=== PATIENT | female | born 1965 | race Caucasian/White ===

== ENCOUNTER 2016-11-03 17:14 | Emergency (ER) | payer OTHER ==
[~2016-11-03] VITALS: Ht 157.5 cm; Wt 84.1 kg
[~2016-11-03 17:14] MED LIST: BCP TD; HIGH BP MED; METRONIDAZOLE500 MG PO; MULTIPLE VITAMI1 CAP PO; NORCO 325 MG-51 TAB PO; PHENERGAN 25 TA25 MG PO; PRILOSEC 10MG10 MG PO; REGLAN 10M10 MG/2 ML; VICODIN 5/5001 UDTAB PO; ZOFRAN ODT4 MG PO
[2016-11-03 17:19] VITALS: BP 136/77; TEMP 98.1
[2016-11-03] MEDS ORDERED: ZESTRIL 10MG10 MG PO (17:45)
[2016-11-03] MEDS ORDERED: HCTZ 25MG TAB25 MG PO (17:46)
[2016-11-03 18:16] LABS: BASO # 0.1 (0.0-0.2); BASO % 0.2 % (0.0-2.0); GRAN % 85.3 % (42.2-75.2); HEMATOCRIT 42.1 % (37.0-47.0); HEMOGLOBIN 13.5 g/dl (12.5-16.0); LYMPH % 9.5 % (20.0-51.0); MEAN CELL VOLUME 90 fl (80.0-100.0); MEAN CORPUSCULAR HEMOGLOBIN 29 pg (27.0-31.0); MEAN CORPUSCULAR HGB CONC 32 g/dl (33.0-37.0); MEAN PLATELET VOLUME 9.2 fl (7.4-10.4); MONO # 0.9 (0.1-0.6); MONO % 4.3 % (1.7-9.3); PLATELET COUNT 525 K/mm3 (130-400); RED BLOOD COUNT 4.68 M/mm3 (4.10-5.30); REDCELL DISTRIBUTION WIDTH-CV 13.7 % (11.5-14.5)
[2016-11-03 18:26] LABS: WHITE BLOOD COUNT 21.1 K/mm3 (4.8-10.8)
[2016-11-03 18:31] LABS: PH 5 (5-8); SQUAMOUS EPITHELIAL 0-2 /hpf; URINE APPEARANCE Hazy; URINE BACTERIA Rare /hpf; URINE BILIRUBIN Negative (NEGATIVE); URINE BLOOD 3+ (NEGATIVE); URINE COLOR Yellow; URINE GLUCOSE Negative (NEGATIVE); URINE KETONE 1+ (NEGATIVE); URINE UROBILINOGEN Negative (NEGATIVE); URINE WBC 0-2 /hpf
[2016-11-03 18:42] LABS: ADJUSTED CALCIUM 9.1 mg/dL (8.4-10.2); ALBUMIN 4.2 gm/dL (3.5-5.0); BILIRUBIN,TOTAL 0.8 mg/dL (0.0-1.0); CALCIUM 9.3 mg/dL (8.4-10.2); CREATININE, serum 0.76 mg/dL (0.52-1.25); POTASSIUM 3.4 mmol/L (3.4-5.0); TOTAL PROTEIN 7.8 gm/dL (6.4-8.2)
[2016-11-03] MEDS ORDERED: ZOFRAN ODT4 MG PO (19:58)
[2016-11-03 20:49] VITALS: PULSE 108
== END 2016-11-03 20:58 | disposition home or self-care (01) ==
LOC: COL.ER 17:14
PROVIDERS: Family Medicine
DX: E86.9 Volume depletion, unspecified (principal); R11.2 Nausea with vomiting, unspecified; I10 Essential (primary) hypertension
CPT/HCPCS: J2405; J2550; J2765; J7030

== ENCOUNTER 2016-11-14 11:59 | Observation (INO) | payer OTHER ==
[~2016-11-14] VITALS: Wt 84.8 kg
[~2016-11-14 11:59] MED LIST changes: +HCTZ 25MG TAB25 MG PO; +ZESTRIL 10MG10 MG PO
[2016-11-14 12:55] LABS: HEMATOCRIT 42.4 % (37.0-47.0); HEMOGLOBIN 13.8 g/dl (12.5-16.0); MEAN CELL VOLUME 89 fl (80.0-100.0); MEAN CORPUSCULAR HEMOGLOBIN 29 pg (27.0-31.0); MEAN CORPUSCULAR HGB CONC 33 g/dl (33.0-37.0); MEAN PLATELET VOLUME 9.4 fl (7.4-10.4); PLATELET COUNT 505 K/mm3 (130-400); RED BLOOD COUNT 4.79 M/mm3 (4.10-5.30); REDCELL DISTRIBUTION WIDTH-CV 13.7 % (11.5-14.5)
[2016-11-14 13:00] LABS: ADD PATHOLOGY DIFF REVIEW NO
[2016-11-14 13:14] LABS: PH 5 (5-8); URINE APPEARANCE Cloudy; URINE BACTERIA Rare /hpf; URINE BILIRUBIN Negative (NEGATIVE); URINE BLOOD 3+ (NEGATIVE); URINE COLOR Yellow; URINE GLUCOSE Negative (NEGATIVE); URINE KETONE 1+ (NEGATIVE); URINE UROBILINOGEN Negative (NEGATIVE)
[2016-11-14 13:20] LABS: BAND 3 % (0-10); NEUTROPHILS 84 % (42.0-75.2); TOTAL CELLS COUNTED 100
[2016-11-14 13:21] LABS: PLATELET ESTIMATE INCREASED (NORMAL)
[2016-11-14 13:55] LABS: ADJUSTED CALCIUM 9.1 mg/dL (8.4-10.2); ALANINE AMINOTRANSFERASE 22 U/L (9-52); ALKALINE PHOSPHATASE 93 U/L (50-136); ANION GAP 15 mmol/L (7-16); BILIRUBIN,TOTAL 0.9 mg/dL (0.0-1.0); BLOOD UREA NITROGEN 20 mg/dL (7-17); C-REACTIVE PROTEIN 3.8 mg/dL (0.0-0.9); CALCIUM 9.1 mg/dL (8.4-10.2); CARBON DIOXIDE 25 mmol/L (22-30); CHLORIDE 99 mmol/L (98-107); CREATININE, serum 0.84 mg/dL (0.52-1.25); GLUCOSE 133 mg/dL (74-106); LIPASE 149 U/L (23-300); POTASSIUM 3.8 mmol/L (3.4-5.0); SODIUM 139 mmol/L (137-145); TOTAL PROTEIN 7.4 gm/dL (6.4-8.2)
[2016-11-14 14:05] LABS: TROPONIN-I < 0.012 ng/mL (0.000-0.034)
[2016-11-14 19:49] VITALS: BP 138/74; PULSE 109; TEMP 98.8
[2016-11-14] MEDS ORDERED: PRILOTC PO (21:15)
[2016-11-14] MEDS ORDERED: NAPROSYN 2250 MG/TAB PO (21:18)
[2016-11-14] MEDS ORDERED: OMEGA-31 SGL PO (21:19)
[2016-11-14 23:04] VITALS: BP 136/64; PULSE 108; TEMP 98.8
[2016-11-15 03:04] VITALS: BP 139/73; PULSE 95; TEMP 98.5
[2016-11-15 07:35] VITALS: BP 139/64; PULSE 97; TEMP 98.3
[2016-11-15 11:47] VITALS: BP 126/76; PULSE 101; TEMP 97.8
[2016-11-15 15:33] VITALS: BP 159/78; PULSE 102; TEMP 98.1
[2016-11-15 21:00] VITALS: BP 157/78; PULSE 105; TEMP 98.4
[2016-11-16] VITALS (9 sets, daily range): BP systolic 132–162; BP diastolic 67–84; PULSE 79–106; TEMP 97.9–98.5
[2016-11-16 07:08] LABS: BASO # 0.1 (0.0-0.2); BASO % 0.5 % (0.0-2.0); EOS % 0.3 % (0-4.0); GRAN % 63.7 % (42.2-75.2); LYMPH # 2.7 (1.2-3.4); LYMPH % 28.6 % (20.0-51.0); MEAN CELL VOLUME 91 fl (80.0-100.0); MEAN CORPUSCULAR HGB CONC 31 g/dl (33.0-37.0); MEAN PLATELET VOLUME 9.5 fl (7.4-10.4); MONO # 0.6 (0.1-0.6); MONO % 6.3 % (1.7-9.3); RED BLOOD COUNT 3.42 M/mm3 (4.10-5.30); REDCELL DISTRIBUTION WIDTH-CV 14.1 % (11.5-14.5); WHITE BLOOD COUNT 9.4 K/mm3 (4.8-10.8)
[2016-11-16 07:19] LABS: HEMOGLOBIN 9.7 g/dl (12.5-16.0); MEAN CORPUSCULAR HEMOGLOBIN 28 pg (27.0-31.0); PLATELET COUNT 346 K/mm3 (130-400)
[2016-11-16 07:25] LABS: ALBUMIN 3.2 gm/dL (3.5-5.0); BILIRUBIN,TOTAL 0.7 mg/dL (0.0-1.0); CALCIUM 7.4 mg/dL (8.4-10.2); CREATININE, serum 0.66 mg/dL (0.52-1.25); MAGNESIUM 1.7 mg/dL (1.6-2.3); POTASSIUM 3.6 mmol/L (3.4-5.0)
[2016-11-16] MEDS ORDERED: REGLAN 10MG10 MG/TAB PO (14:14)
== END 2016-11-16 15:16 | disposition home or self-care (01) ==
LOC: COL.ER 11:59 → MEDICAL 17:17
PROVIDERS: Family Medicine; Internal Medicine; Nurse Practitioner
DX: G43.A0 Cyclical vomiting, in migraine, not intractable (principal); K52.9 Noninfective gastroenteritis and colitis, unspecified; K29.70 Gastritis, unspecified, without bleeding; K31.84 Gastroparesis; R00.0 Tachycardia, unspecified; D72.829 Elevated white blood cell count, unspecified; R18.8 Other ascites
CPT/HCPCS: 99232-AI; 99239; C9113; G0378; J1650; J2250; J2550; J2765; J3010; J7030; Q9967

== ENCOUNTER 2016-11-18 06:18 | Emergency (ER) | payer OTHER ==
[~2016-11-18] VITALS: Ht 157.5 cm; Wt 84.1 kg
[~2016-11-18 06:18] MED LIST changes: +NAPROSYN 2250 MG/TAB PO; +OMEGA-31 SGL PO; +PRILOTC PO; +REGLAN 10MG10 MG/TAB PO
[2016-11-18 06:21] VITALS: TEMP 97.7
[2016-11-18 07:01] LABS: HEMATOCRIT 46.2 % (37.0-47.0); MEAN CELL VOLUME 87 fl (80.0-100.0); MEAN CORPUSCULAR HGB CONC 33 g/dl (33.0-37.0); MEAN PLATELET VOLUME 9.4 fl (7.4-10.4); RED BLOOD COUNT 5.29 M/mm3 (4.10-5.30); REDCELL DISTRIBUTION WIDTH-CV 13.7 % (11.5-14.5)
[2016-11-18 07:03] LABS: ADD PATHOLOGY DIFF REVIEW NO; HEMOGLOBIN 15.3 g/dl (12.5-16.0); MEAN CORPUSCULAR HEMOGLOBIN 29 pg (27.0-31.0); PLATELET COUNT 553 K/mm3 (130-400); WHITE BLOOD COUNT 24.6 K/mm3 (4.8-10.8)
[2016-11-18 07:45] LABS: BAND 16 % (0-10); METAMYELOCYTE 1 % (0-0); NEUTROPHILS 73 % (42.0-75.2); PLATELET ESTIMATE INCREASED (NORMAL); TOTAL CELLS COUNTED 100
[2016-11-18 07:48] LABS: TOXIC GRANULATION PRESENT
[2016-11-18 07:54] LABS: ADJUSTED CALCIUM 8.8 mg/dL (8.4-10.2); ALBUMIN 4.3 gm/dL (3.5-5.0); BILIRUBIN,TOTAL 1.2 mg/dL (0.0-1.0); C-REACTIVE PROTEIN 2.7 mg/dL (0.0-0.9); CREATININE, serum 0.92 mg/dL (0.52-1.25); POTASSIUM 3.5 mmol/L (3.4-5.0); TOTAL PROTEIN 7.9 gm/dL (6.4-8.2)
[2016-11-18] MEDS ORDERED: PHENERGAN25 MG RC (08:18)
[2016-11-18 08:45] LABS: PH 5 (5-8); SQUAMOUS EPITHELIAL 0-2 /hpf; URINE APPEARANCE Hazy; URINE BACTERIA None Seen /hpf; URINE BILIRUBIN Negative (NEGATIVE); URINE BLOOD 3+ (NEGATIVE); URINE COLOR Yellow; URINE GLUCOSE Negative (NEGATIVE); URINE KETONE 1+ (NEGATIVE); URINE UROBILINOGEN Negative (NEGATIVE)
[2016-11-18 10:59] VITALS: BP 155/85; PULSE 123
== END 2016-11-18 10:59 | disposition home or self-care (01) ==
LOC: COL.ER 06:18
PROVIDERS: Emergency Medicine
DX: R11.10 Vomiting, unspecified (principal); R19.7 Diarrhea, unspecified; R10.816 Epigastric abdominal tenderness; I10 Essential (primary) hypertension; G43.A0 Cyclical vomiting, in migraine, not intractable
CPT/HCPCS: J1200; J1630; J2060; J2405; J2550; J7030

== ENCOUNTER 2016-11-25 22:45 | Observation (INO) | payer OTHER ==
[~2016-11-25] VITALS: Ht 157.5 cm; Wt 83.5 kg
[~2016-11-25 22:45] MED LIST changes: +PHENERGAN25 MG RC
[2016-11-26 00:01] LABS: HEMOGLOBIN 17.5 g/dl (12.5-16.0); MEAN CELL VOLUME 87 fl (80.0-100.0); MEAN CORPUSCULAR HEMOGLOBIN 29 pg (27.0-31.0); MEAN CORPUSCULAR HGB CONC 33 g/dl (33.0-37.0); PLATELET COUNT 594 K/mm3 (130-400); RED BLOOD COUNT 6.08 M/mm3 (4.10-5.30); REDCELL DISTRIBUTION WIDTH-CV 13.9 % (11.5-14.5)
[2016-11-26 00:03] LABS: ADD PATHOLOGY DIFF REVIEW NO
[2016-11-26 00:10] LABS: ADJUSTED CALCIUM 9.1 mg/dL (8.4-10.2); ALBUMIN 4.1 gm/dL (3.5-5.0); CALCIUM 9.2 mg/dL (8.4-10.2); CREATININE, serum 1.5 mg/dL (0.52-1.25); POTASSIUM 3.7 mmol/L (3.4-5.0); TOTAL PROTEIN 7.3 gm/dL (6.4-8.2)
[2016-11-26] MEDS ORDERED: FEMYNOR 28 TAB1 EACH PO (00:11)
[2016-11-26] MEDS ORDERED: PRILOSEC 20MG20 MG PO (00:13)
[2016-11-26 00:30] LABS: BAND 13 % (0-10); NEUTROPHILS 67 % (42.0-75.2); PLATELET ESTIMATE INCREASED (NORMAL); TOTAL CELLS COUNTED 100
[2016-11-26 02:43] VITALS: BP 147/74; PULSE 114; TEMP 97.4
[2016-11-26 05:51] LABS: PH 5 (5-8); SQUAMOUS EPITHELIAL 0-2 /hpf; URINE APPEARANCE Hazy; URINE BACTERIA Rare /hpf; URINE BILIRUBIN Negative (NEGATIVE); URINE BLOOD 2+ (NEGATIVE); URINE COLOR Yellow; URINE GLUCOSE Negative (NEGATIVE); URINE KETONE Trace (NEGATIVE); URINE UROBILINOGEN Negative (NEGATIVE)
[2016-11-26 05:52] LABS: URINE WBC 0-2 /hpf
[2016-11-26 07:19] VITALS: BP 143/80; PULSE 113; TEMP 98.1
[2016-11-26 09:07] LABS: CALCIUM 7.9 mg/dL (8.4-10.2); CREATININE, serum 1.05 mg/dL (0.52-1.25); POTASSIUM 3.7 mmol/L (3.4-5.0)
[2016-11-26 11:35] VITALS: BP 122/54; PULSE 126; TEMP 97.4
[2016-11-26 15:21] VITALS: BP 117/55; PULSE 104; TEMP 98.3
[2016-11-26 19:27] VITALS: BP 98/50; PULSE 97; TEMP 97.7
[2016-11-26 23:12] VITALS: BP 108/52; PULSE 97; TEMP 98.2
[2016-11-27 03:44] VITALS: BP 102/53; PULSE 84; TEMP 98
[2016-11-27 08:51] VITALS: BP 100/51; PULSE 92; TEMP 98.4
[2016-11-27 09:41] LABS: BASO % 0.2 % (0.0-2.0); EOS % 0.2 % (0-4.0); GRAN # 8.3 (1.4-6.5); LYMPH # 3.2 (1.2-3.4); LYMPH % 25.6 % (20.0-51.0); MEAN CELL VOLUME 89 fl (80.0-100.0); MEAN CORPUSCULAR HGB CONC 32 g/dl (33.0-37.0); MEAN PLATELET VOLUME 9.5 fl (7.4-10.4); MONO # 0.8 (0.1-0.6); MONO % 6.6 % (1.7-9.3); RED BLOOD COUNT 3.31 M/mm3 (4.10-5.30); REDCELL DISTRIBUTION WIDTH-CV 14.4 % (11.5-14.5); WHITE BLOOD COUNT 12.4 K/mm3 (4.8-10.8)
[2016-11-27 09:44] LABS: HEMATOCRIT 29.6 % (37.0-47.0); HEMOGLOBIN 9.5 g/dl (12.5-16.0); MEAN CORPUSCULAR HEMOGLOBIN 29 pg (27.0-31.0); PLATELET COUNT 373 K/mm3 (130-400)
[2016-11-27 09:48] LABS: ADJUSTED CALCIUM 7.9 mg/dL (8.4-10.2); ALBUMIN 2.8 gm/dL (3.5-5.0); BILIRUBIN,TOTAL 0.7 mg/dL (0.0-1.0); CALCIUM 6.9 mg/dL (8.4-10.2); CREATININE, serum 0.86 mg/dL (0.52-1.25); MAGNESIUM 1.7 mg/dL (1.6-2.3); POTASSIUM 3.1 mmol/L (3.4-5.0); TOTAL PROTEIN 5.2 gm/dL (6.4-8.2)
[2016-11-27] MEDS ORDERED: PHENERGAN 25 TA25 MG PO (10:38)
[2016-11-27] MEDS ORDERED: REGLAN 10MG10 MG/TAB PO (10:39)
[2016-11-27 11:03] VITALS: BP 113/55; PULSE 91; TEMP 97.9
== END 2016-11-27 12:56 | disposition home or self-care (01) ==
LOC: COL.ER 22:45 → MEDICAL 11-26 01:51
PROVIDERS: Emergency Medicine; Internal Medicine
DX: A08.4 Viral intestinal infection, unspecified (principal); I10 Essential (primary) hypertension; D72.829 Elevated white blood cell count, unspecified; N17.9 Acute kidney failure, unspecified; D64.9 Anemia, unspecified; E87.2 Acidosis
CPT/HCPCS: C9113; G0378; J0696; J1170; J1200; J1644; J2060; J2405; J2550; J7030

== ENCOUNTER 2016-12-11 17:34 | Emergency (ER) | payer OTHER ==
[~2016-12-11] VITALS: Ht 157.5 cm; Wt 82.3 kg
[~2016-12-11 17:34] MED LIST changes: +FEMYNOR 28 TAB1 EACH PO; +PRILOSEC 20MG20 MG PO
[2016-12-11 17:36] VITALS: TEMP 97.8
[2016-12-11 18:18] LABS: HEMATOCRIT 46.8 % (37.0-47.0); HEMOGLOBIN 15.4 g/dl (12.5-16.0); MEAN CELL VOLUME 87 fl (80.0-100.0); MEAN CORPUSCULAR HEMOGLOBIN 29 pg (27.0-31.0); MEAN CORPUSCULAR HGB CONC 33 g/dl (33.0-37.0); MEAN PLATELET VOLUME 9.2 fl (7.4-10.4); PLATELET COUNT 545 K/mm3 (130-400); RED BLOOD COUNT 5.37 M/mm3 (4.10-5.30); REDCELL DISTRIBUTION WIDTH-CV 13.6 % (11.5-14.5)
[2016-12-11 18:30] LABS: ADJUSTED CALCIUM 9.3 mg/dL (8.4-10.2); ALBUMIN 4.4 gm/dL (3.5-5.0); BILIRUBIN,TOTAL 0.7 mg/dL (0.0-1.0); C-REACTIVE PROTEIN 3.2 mg/dL (0.0-0.9); CALCIUM 9.6 mg/dL (8.4-10.2); CREATININE, serum 1.09 mg/dL (0.52-1.25); POTASSIUM 3.4 mmol/L (3.4-5.0)
[2016-12-11 18:36] LABS: ADD PATHOLOGY DIFF REVIEW NO
[2016-12-11 19:03] LABS: BAND 5 % (0-10); NEUTROPHILS 73 % (42.0-75.2); PLATELET ESTIMATE NORMAL (NORMAL); TOTAL CELLS COUNTED 100
[2016-12-11 19:49] LABS: ERYTHROCYTE SEDIMENTATION RATE 25 mm/hr (0-30)
[2016-12-11 19:55] LABS: PH 5 (5-8); URINE APPEARANCE Hazy; URINE BACTERIA None Seen /hpf; URINE BILIRUBIN Negative (NEGATIVE); URINE BLOOD 1+ (NEGATIVE); URINE GLUCOSE Negative (NEGATIVE); URINE KETONE Negative (NEGATIVE); URINE UROBILINOGEN Negative (NEGATIVE)
[2016-12-11 19:56] LABS: URINE COLOR Yellow
[2016-12-11 20:50] VITALS: BP 118/90; PULSE 125
== END 2016-12-11 21:22 | disposition short-term general hospital (02) ==
LOC: COL.ER 17:34
PROVIDERS: Emergency Medicine
DX: K52.9 Noninfective gastroenteritis and colitis, unspecified (principal); I10 Essential (primary) hypertension; M19.90 Unspecified osteoarthritis, unspecified site; Z87.19 Personal history of other diseases of the digestive system; Z98.890 Other specified postprocedural states
CPT/HCPCS: C9113; J1200; J1630; J2405; J2550; J7030; Q9967

== ENCOUNTER → 2017-02-28 | Outpatient (CLI) | payer OTHER | LOC: MC.RAD 14:08 | DX: Z12.31 Encounter for screening mammogram for malignant neoplasm of breast (principal) ==

== ENCOUNTER → 2018-03-17 | Outpatient (CLI) | payer OTHER | LOC: MC.RAD 14:20 | DX: Z12.31 Encounter for screening mammogram for malignant neoplasm of breast (principal) ==

== ENCOUNTER → 2019-01-12 | Outpatient (CLI) | payer OTHER | LOC: COL.RAD 06:56 | DX: R10.31 Right lower quadrant pain (principal) ==

== ENCOUNTER → 2020-11-25 | Outpatient (CLI) | payer OTHER | LOC: MC.RAD 08:23 | DX: Z12.31 Encounter for screening mammogram for malignant neoplasm of breast (principal) ==